=== PATIENT | female | born 1990 | race Two or more races ===

== ENCOUNTER 2024-11-18 10:36 | Emergency (ER) | payer OTHER, SELFPAY ==
[2024-11-18 11:00] VITALS: BP 131/88; PULSE 80; RESP 18; TEMP 37.2; O2SAT 99; BMI 33.1
--- NOTE | 2024-11-18 12:30 | EDNOTE_ITS ---
ED OB Contraction Preg RMI/HPI General Stated complaint: VAGINAL CRAMPING / BLEEDING X AM; 7-8WKS PREG Time Seen by Provider: 11/18/24 11:59 Arrival date/time: 11/18/24 10:36 RME / HPI RME / HPI Narrative: 34-year-old female G4, P1 presents to the emergency department with complaint of vaginal bleeding that started this morning. Patient states she believes she is about 7 to 8 weeks . She denies trauma. She denies possibility of an STI. Patient denies fever or chills. Related Data Previous Rx's ?Medication ?Instructions ?Recorded cephalexin 500 mg capsule (Keflex) 500 mg PO BID #20 caps 03/03/20 naproxen 500 mg tablet 500 mg PO BID #60 tabs 11/22/21 phenazopyridine 200 mg tablet 200 mg PO TID PRN pain 6 doses #6 05/18/22 (Pyridium) tabs Allergies Allergy/AdvReac Type Severity Reaction Status Date / Time No Known Allergies Allergy Verified 11/18/24 10:38 Review of Systems Review of Systems Systems Reviewed: All systems reviewed, normal except as documented Constitutional Constitutional: Reports system reviewed and no additional complaints, except as documented Cardiovascular Cardiovascular: Reports system reviewed and no additional complaints, except as documented Respiratory Respiratory: Reports system reviewed and no additional complaints, except as documented Gastrointestinal Gastrointestinal: Reports system reviewed and no additional complaints, except as documented Genitourinary Genitourinary: Reports system reviewed and no additional complaints, except as documented Musculoskeletal Musculoskeletal: Reports system reviewed and no additional complaints, except as documented ED Exam General General appearance: Present alert and in no apparent distress Head Head exam: Present atraumatic Eye Eye exam: Present normal appearance ENT ENT exam: Present normal exam and normal oropharynx Respiratory Respiratory exam: Present normal lung sounds bilaterally Cardiovascular Cardiovascular exam: Present regular rate Neurological Exam Neurological exam: Present alert and oriented X3 Psychiatric Psychiatric exam: Present normal affect Course Quality Measures none Orders Category Date Time Status US OB <= 14 weeks fetus Stat Exams 11/18/24 12:31 Completed ABO/RH Type Stat Lab 11/18/24 13:11 Completed Beta HCG,Quantitative Stat Lab 11/18/24 13:11 Completed Urinalysis Stat Lab 11/18/24 13:02 Completed Vital Signs Vital signs: Vital Signs Temperature 98.9 F 11/18/24 11:00 Pulse Rate 80 11/18/24 11:00 Respiratory Rate 18 11/18/24 11:00 Blood Pressure 131/88 H 11/18/24 11:00 Pulse Oximetry (%) 99 11/18/24 11:00 Oxygen Delivery Method Room Air 11/18/24 11:00 Vaginal Bleeding Patient data External records reviewed:: None Clinical information provided by:: patient Social determinants that could affect healthcare access:: none Patient has the following chronic illnesses:: na How is presenting disease/condition affected by chronic disease/condition?: no chronic disease Evaluation data The following diagnostics were reviewed and interpreted by me:: lab results and radiology exam(s) Lab and/or radiology exams considered but not ordered:: Labs and radiology exams were considered and ordered Interpretation Summary: Lab indicates demise based on hCG level Ultrasound confirms demise Medications / Prescriptions Medications or Prescriptions considered but not ordered:: na Medication administrations:: na Consultations Consultation(s) initiated? (list below): No Diagnosis Vaginal Bleeding Differential Diagnosis: missed , threatened , dysfunctional uterine bleeding, menometrorrhagia, incomplete and vaginal bleeding Most likely diagnosis given after review of the tests above:: missed Admission Indicated Admission indicated?: not indicated Admission Request Was there a request for admission?: No Disposition Plan Disposition Plan: Discharge Discharge Attestation Discharge Attestation: The patient and all family members were given an opportunity to ask questions and understood the discharge instructions. Discharge instructions specifically effects, indications for sooner follow up or return to the emergency department, and the expected course of current diagnosis. Patient condition: Stable Discharge Plan Plan Patient Disposition: HOME (Self Care) Patient condition on transfer: Stable Prescriptions/Referrals Prescriptions/Med Rec: No Action cephalexin [Keflex] 500 mg capsule 500 mg PO BID Qty: 20 0RF phenazopyridine [Pyridium] 200 mg tablet 200 mg PO TID PRN (Reason: pain) Qty: 6 0RF naproxen 500 mg tablet 500 mg PO BID Qty: 60 0RF Referrals: Wellington Peng MD [Primary Care Provider] - In 1 week Problem List Clinical Impression: Complete miscarriage Patient/Caregiver Discharge Instructions Education Materials: Loss Edison, ED MISCARRIAGE Completed Print Language: Greenlandic Stand Alone Forms: Mere Award Info., Patient Portal Info Letter
--- NOTE | 2024-11-18 12:31 | XR_ITS ---
Examination: Complete OB ultrasound, less than 14 weeks, transabdominal Date and time of exam: November 18, 2023 1333 hrs. Indications: Onset vaginal bleeding beginning this morning Technique: Obstetrical ultrasound images less than 14 weeks performed via transabdominal imaging Findings: Uterus 8.1 x 3.4 x 5.0 cm Endometrial stripe 0.4 cm No uterine mass or intrauterine gestation Right ovary 2.6 x 1.8 x 2.0 cm arterial flow Left ovary 3.0 x 2.2 x 2.5 cm arterial flow Impression: No uterine mass or intrauterine gestation
[2024-11-18 13:29] LABS: Collection Type, Urine Clean Catch; Squamous Epithelial Cell,Urine 0 /hpf (0-5); WBC,Urine 0 /hpf (0-5)
[2024-11-18 13:53] LABS: Beta HCG,Quantitative < 1 mIU/mL (<5.0)
[2024-11-18 14:09] LABS: Bilirubin,Urine Negative (Negative); Blood,Urine 1+ (Negative); Clarity,Urine Clear (Clear/Hazy); Color,Urine Lt-Yellow (Lt Yel-Yel); Glucose, Urine Negative (Negative); Ketones,Urine Negative (Negative); Leukocyte Esterase,Urine Negative (Negative); Nitrite,Urine Negative (Negative); Protein,Urine Negative (Neg - Trace); RBC,Urine 2 /hpf (0-3); Specific Gravity,Urine 1.008 (1.001-1.035); Urobilinogen,Urine Negative mg/dL (0.0-1.0)
== END 2024-11-18 17:05 | disposition home or self-care (01) ==
PROVIDERS: Physician Assistant; Emergency Provider Emergency Medicine; PCP Family Medicine
DX: O03.9 Complete or unspecified spontaneous abortion without complication (principal)
CPT/HCPCS: 36415; 76801; 81001; 84702; 86900; 86901; 99284

== ENCOUNTER 2025-08-09 14:22 | Observation (INO) | payer OTHER, SELFPAY ==
[2025-08-09 14:42] VITALS: BP 118/65; PULSE 88
[2025-08-09 15:02] VITALS: BP 118/65; PULSE 88; RESP 18; RESP 97; TEMP 36.7; BMI 41.4
[2025-08-09 15:36] LABS: Collection Type, Urine Clean Catch
[2025-08-09 15:45] LABS: Bacteria,Urine Rare; Bilirubin,Urine Negative (Negative); Blood,Urine Negative (Negative); Clarity,Urine Clear (Clear/Hazy); Color,Urine Colorless (Lt Yel-Yel); Glucose, Urine Negative (Negative); Ketones,Urine Negative (Negative); Leukocyte Esterase,Urine Positive (Negative); Nitrite,Urine Negative (Negative); PH,Urine 7.0 (5.0-7.0); Protein,Urine Negative (Neg - Trace); RBC,Urine 2 /hpf (0-3); Specific Gravity,Urine 1.010 (1.001-1.035); Squamous Epithelial Cell,Urine 2 /hpf (0-5); Urobilinogen,Urine Negative mg/dL (0.0-1.0); WBC,Urine < 1 /hpf (0-5)
[2025-08-09 16:22] LABS: FFN Specimen Descripton Clr Colrless Aqueous; Fetal Fibronectin Negative (Negative)
== END 2025-08-09 18:00 | disposition home or self-care (01) ==
PROVIDERS: Admitting Provider Specialist; Visit Provider Specialist
DX: O26.893 Other specified pregnancy related conditions, third trimester (principal); Z3A.28 28 weeks gestation of pregnancy; R10.30 Lower abdominal pain, unspecified
CPT/HCPCS: 59025; 59899; 81001; 82731

== ENCOUNTER 2025-10-19 09:52 | Inpatient (IN) | payer OTHER, MEDICAID, SELFPAY ==
--- NOTE | 2025-10-13 09:48 | ESHP_ITS ---
RE: OSWALDO ANDERSON : 1990 DATE OF ADMISSION: 10/19/2025 HISTORY OF PRESENT ILLNESS: This is a 35-year-old 5, para 1-0-3-1, with due date of 10/26 with intrauterine at 39 weeks and 0 days on 10/19, who presents for repeat delivery. Patient's care was complicated by gestational diabetes mellitus class A2, well controlled. She reports occasional contractions. She denies any leaking or bleeding. She reports normal movement. ALLERGIES: NO KNOWN DRUG ALLERGIES. MEDICATIONS: 1. multivitamin 1 p.o. daily. 2. Humulin NPH 10 units subQ at bedtime. 3. Aspirin 81 mg 1 p.o. daily. PAST MEDICAL HISTORY: Recurrent loss, autoimmune disease, rubella nonimmune, fatty infiltration of the liver, varicose veins, gestational diabetes mellitus class A2, constipation. FAMILY HISTORY: Diabetes. OBSTETRIC HISTORY: In 2016, 40 weeks, delivery. In 2018, spontaneous AB, 6 weeks gestation, no D and C. In 2020, 6 weeks, spontaneous AB, no D and C. In 10/2024, 6 weeks, spontaneous AB, no D and C. PAST SURGICAL HISTORY: Laparoscopic cholecystectomy 04/2017 and delivery 04/2017. REVIEW OF SYSTEMS: She denies any chest pain, palpitations, cough, fever, flank pain, shortness of breath, or lower extremity pain. PHYSICAL EXAMINATION: VITAL SIGNS: Blood pressure 116/71, heart rate 88, respirations 18, temperature is 98.6, weight 238 pounds. HEENT: Oropharynx and sclerae are clear. LUNGS: Clear to auscultation bilaterally. HEART: Regular rate and rhythm. ABDOMEN: Gravid, term size. Old Pfannenstiel scar noted. EXTREMITIES: Nontender. SKIN: No gross rashes or lesions. NEUROLOGIC: No focal deficit. ASSESSMENT: Intrauterine at 39 weeks, on 10/19. Previous delivery, elective repeat delivery. PLAN: Repeat delivery. Informed consent was obtained. The patient made aware of the risks, complications, alternatives, and benefits of the proposed procedure and she agrees. DT: 09:34:14 TT: 09:47:00 Ref: [id number] - TID: [id number] [facility]
[2025-10-18 10:14] LABS: Basophils # (Auto) 0.0 Thou/mm3 (0.0-0.2); Basophils % (Auto) 0 % (0-2.5); Eosinophils # (Auto) 0.0 Thou/mm3 (0.0-0.5); Eosinophils % (Auto) 1 % (0-10); Hematocrit 38.3 % (36.0-46.0); Hemoglobin 12.4 g/dL (12.0-16.0); Immature Granulocytes Auto 0.04 Thou/mm3 (0.00-0.00); Lymphocytes # (Auto) 1.8 Thou/mm3 (1.0-4.8); Lymphocytes % (Auto) 21 % (10-50); Mean Corpuscular HGB Conc 32.4 g/dl (31.0-37.0); Mean Corpuscular Hemoglobin 29.2 pg (25.0-35.0); Mean Corpuscular Volume 90 fL (80-100); Monocytes # (Auto) 0.8 Thou/mm3 (0.0-0.8); Monocytes % (Auto) 9 % (0-12); Neutrophils # (Auto) 5.9 Thou/mm3 (1.8-7.7); Neutrophils % (Auto) 69 % (37-80); Nucleated Red Blood Cell # 0.00 Thou/mm3 (0.00-0.00); Nucleated Red Blood Cell % 0 /100 WBC (0); Platelet Count 135 Thou/mm3 (140-440); RDW Standard Deviation 47.1 fL (36.4-46.3); Red Blood Count 4.25 Miln/mm3 (4.00-5.20); White Blood Count 8.5 Thou/mm3 (3.6-11.0)
[2025-10-18 10:27] LABS: INR 0.9 (0.9-1.3); Partial Thromboplastin Time 26.2 Seconds (22.0-36.0); Prothrombin Time 9.7 Seconds (9.0-12.2)
[2025-10-18 10:31] LABS: Alanine Aminotransferase 8 U/L (10-49); Albumin, Serum 3.9 gm/dL (3.5-5.0); Albumin/Globulin Ratio 1.4 (1.2-2.2); Alkaline Phosphatase 156 U/L (46-116); Anion Gap 10 (7-16); Aspartate Amino Transferase < 8 U/L (0-34); BUN/Creatinine Ratio 12 Ratio (12-20); Bilirubin,Total 0.3 mg/dL (0.3-1.2); Blood Urea Nitrogen 6 mg/dL (9-23); Calcium 9.3 mg/dL (8.3-10.6); Calcium (Corrected) 9.4 mg/dL (8.5-10.1); Carbon Dioxide 25.0 mMol/L (20.0-31.0); Chloride 106 mMol/L (98-107); Creatinine (Component) 0.5 mg/dL (0.6-1.3); Globulin 2.7 gm/dL (2.3-3.5); Glucose 94 mg/dL (74-106); Osmolality,Calculated 278 (275-295); Potassium 4.3 mMol/L (3.4-5.1); Sodium 141 mMol/L (136-145); Total Protein 6.6 gm/dL (5.7-8.2); eGFR > 60 See Note
[2025-10-18 11:20] LABS: Syphilis Nonreactive (Nonreactive)
[2025-10-19] VITALS (17 sets, daily range): BP systolic 0–140; BP diastolic 0–85; PULSE 70–92; RESP 12–25; TEMP 36.6–36.9; O2SAT 95–99; BMI 42.6
[2025-10-19 10:34] LABS: Basophils # (Auto) 0.0 Thou/mm3 (0.0-0.2); Basophils % (Auto) 0 % (0-2.5); Eosinophils # (Auto) 0.0 Thou/mm3 (0.0-0.5); Eosinophils % (Auto) 0 % (0-10); Hematocrit 38.7 % (36.0-46.0); Hemoglobin 12.9 g/dL (12.0-16.0); Immature Granulocytes Auto 0.05 Thou/mm3 (0.00-0.00); Lymphocytes # (Auto) 2.2 Thou/mm3 (1.0-4.8); Lymphocytes % (Auto) 23 % (10-50); Mean Corpuscular HGB Conc 33.3 g/dl (31.0-37.0); Mean Corpuscular Hemoglobin 29.6 pg (25.0-35.0); Mean Corpuscular Volume 89 fL (80-100); Monocytes # (Auto) 0.9 Thou/mm3 (0.0-0.8); Monocytes % (Auto) 9 % (0-12); Neutrophils # (Auto) 6.4 Thou/mm3 (1.8-7.7); Neutrophils % (Auto) 67 % (37-80); Nucleated Red Blood Cell # 0.00 Thou/mm3 (0.00-0.00); Nucleated Red Blood Cell % 0 /100 WBC (0); Platelet Count 136 Thou/mm3 (140-440); RDW Standard Deviation 46.2 fL (36.4-46.3); Red Blood Count 4.36 Miln/mm3 (4.00-5.20); White Blood Count 9.5 Thou/mm3 (3.6-11.0)
[2025-10-19] MEDS: RINGERS LACTATED 1000 ML 1,000 ML 100 ML IV ×2 (10:44→11:14)
[2025-10-19 11:14] LABS: Syphilis Nonreactive (Nonreactive)
[2025-10-19] MEDS: ceFAZolin/D5W 2 GM IV 2 GM/100 ML BAG IV (12:18)
[2025-10-19] MEDS: FAMOTIDINE INJ 10 MG/ML VIAL 2 ML 20 MG IV (12:18)
--- NOTE | 2025-10-19 12:27 | ESDS_ITS ---
DS: Providers Provider Date of admission: 10/19/25 09:52 Primary care physician: Wellington Peng MD Admitting Provider: Carlos Mar MD Attending Provider on Admission: Carols Mar MD Attending Provider on DC: Carlos Mar MD Discharging Provider: Carlos Mar MD DS: Diagnosis Problem List Completed Was Problem List Reviewed/Reconciled?: Yes Summary/Hosp Course Peripartum Data Procedures: Procedures Operation Date: 10/19/25 12:45 <No data on this case meets the specified criteria> Time Spent with Patient Time attestation: Total time spent providing and/or coordinating discharge services: Exam Vital Signs Temp Pulse Resp BP 98.0 F 91 16 0/0 L 10/19/25 10:00 10/19/25 10:12 10/19/25 10:00 10/19/25 10:13 Discharge Plan Plan Patient Disposition: HOME (Self Care) Patient condition on transfer: Stable Prescriptions/Referrals Prescriptions/Med Rec: New ibuprofen 600 mg tablet 600 mg PO Q6H PRN (Reason: pain) Qty: 30 0RF Continued Vitamin 27 mg iron- 800 mcg tablet 1 tab PO QDAY Discontinued aspirin 81 mg tablet 81 mg PO QDAY Referrals: Wellington Peng MD [Primary Care Provider, Family Practice] Patient/Caregiver Discharge Instructions Discharge Activity: activity as tolerated Other Discharge Activity Instructions:: Follow up office 1 week. Education Materials: Depression, Breast Care After , : Caring for Yourself, C Section Dc, Hemorrhage Print Language: Bulgarian Stand Alone Forms: Mere Award Info., Patient Portal Info Letter Discharge Order Discharge Orders: Discharge (Routine); Ordered 10/21/25 Ordered By: Carlos Mar Planned Discharge Date 10/21/25
--- NOTE | 2025-10-19 12:27 | PD.ADDHP ---
Addendum History & Physical Addendum Date of report being addended: 10/19/25 Narrative: Patient reexamined. No change in H and P .
--- NOTE | 2025-10-19 12:27 | PD.GYNPROC ---
Operative Note - AUTOMOTIVE PARTS INTERPRETER Procedure Date of procedure: 10/19/25 Procedure Performed: Repeat low-transverse section via Pfannenstiel skin incision Indication: Intrauterine at 39 weeks and 0 days Gestational diabetes mellitus class A2 Previous delivery elects repeat delivery Pre-Op diagnosis: Intrauterine at 39 weeks and 0 days Gestational diabetes mellitus class A2 Previous delivery elects repeat delivery Post-Op diagnosis: Intrauterine at 39 weeks and 0 days Gestational diabetes mellitus class A2 Previous delivery elects repeat delivery Anesthesia type: Spinal Procedure description: After proper informed consent was obtained and the patient was made aware of the risks, complications, alternatives and benefits of the proposed procedure she was taken to the operating room where she underwent induction of spinal anesthesia. She was prepped and draped in the usual sterile fashion. A timeout was performed.? A Pfannenstiel skin incision was made with the scalpel and carried through to the underlying layer of fascia with the Bovie. The fascia was nicked in the midline incision and the incision was extended bilaterally with the Bovie. The inferior aspect of the fascial incision was grasped with Danny clamps elevated and the underlying rectus muscle dissected off with the Bovie. The superior aspect the fascial incision was grasped with Danny clamps elevated and the underlying rectus muscle dissected off with the Bovie. The rectus muscles were in the midline. The peritoneum was grasped between 2 Sheridan clamps and entered sharply with the Metzenbaum scissors. The peritoneum was extended superiorly and inferiorly with good visualization of the bladder. The vesicouterine peritoneum was incised transversely and the bladder flap created digitally. A Enderlin blade was inserted. A low transverse incision was made in the uterus with a scapel and the incision was extended digitally. The 's head delivered and the mouth and nose were suctioned with the bulb suction. The shoulder and body delivered atraumatically. The cord was clamped after 30 second delayed cord clamping and the cord was cut.? The was handed off to the waiting Pediatric staff, cord blood was collected for lab testing. The placenta was removed complete and intact. The uterus was exteriorized and cleared of all clots and debris. The uterine incision was closed with #1-0 chromic catgut suture in a running interlocking fashion. A second layer of the same suture was used to imbricate the first layer and obtain excellent hemostasis. The vesicouterine peritoneum was closed with 2-0 chromic catgut suture in a running fashion. The firm uterus was returned to the abdomen. The gutters were cleared of all clots and debris. The peritoneum was closed with 0 chromic catgut suture in running fashion. The rectus muscle was closed with 0 chromic catgut suture. The fascia was closed with 0 Vicryl beginning at each angle and ending in the center in a running fashion. The subcutaneous tissue was irrigated with warmed normal saline solution and found to be hemostatic. The subcutaneous tissue was closed with 2-0 chromic catgut suture in a running fashion. The skin was closed with 4-0 Monocryl. A Dermabond Prineo dressing was applied and a sterile pressure dressing was applied.? She tolerated the procedure well. Counts were correct. I discussed with the patient the nature of her condition, intraoperative findings and expectation for recovery all? questions answered. Specimen: none Estimated blood loss (ml): 1,000 Findings: Live male Apgars 8 and 8 Amniotic fluid clear Cephalic Weight 9lbs 5 oz Placenta removed completely intact Ovaries and tubes grossly within normal limits Uterus initially atonic but responded to uterotonics: Pitcocin, Methegerine, Cytotec and TXA Complications: other (Uterine atony) Surgical staff Sathish Mar, Surgeon Operation Date: 10/19/25 12:45 <No data on this case meets the specified criteria> Diagnosis Discharge Diagnosis (1) delivery delivered: Status: Acute (2) Gestational diabetes mellitus, class A2: Status: Acute (3) Uterine atony, , current hospitalization: Status: Acute Problem List Completed Was Problem List Reviewed/Reconciled?: Yes
--- NOTE | 2025-10-19 13:44 | OBDSUM_ITS ---
Data (Deshpande) Data Hx Section: Yes : 2 Term: 1 : 0 Livin Abortions: Spontaneous & Theraputic: 3 Delivery Data (Deshpande) Labor Data Induction/Augmentation Agent: None ROM date: 10/19/25 ROM time: 12:55 Amniotic membrane rupture type: Artificial Amniotic fluid description: Clear Delivery Data delivery date: 10/19/25 delivery time: 12:56 Placenta delivery date: 10/19/25 Placenta delivery time: 12:58 Delivered by: Delivery nurse: mamie beltran [place] nurse: kika Brass And [employer] Instrument Repairer at delivery: No Support person(s) at delivery: fob Delivery Method Delivery method: Low Transverse Presentation: Vertex position: OA Anesthesia Type Anesthesia Type: Spinal Anesthesia type: Spinal Placenta Placenta delivery description: Manual Removal Cord blood sent to lab: Yes cord blood collection: Cord Blood Type Episiotomy Episiotomy description: None EBL Estimated blood loss (ml): 1,000 Umbilical Cord cord description: 3 Vessels Complications Complications: Uterine atony Data (Deshpande) Data order: 1 's gender: Male Identification band number: [id number] weight (gms): 9 lb 4.503 oz Weight (pounds): 9 lbs and 4.5 ozs [place] length: 22 in 1 minute: 8 5 minutes: 8
[2025-10-19] MEDS: OXYTOCIN in NS 20 units 20 UNIT/1,000 ML BAG 125 UNIT IV ×2 (14:24→22:31)
[2025-10-19] MEDS: KETOROLAC INJ 30 MG/ML VIAL IVP (14:58)
[2025-10-19 21:36] LABS: Basophils # (Auto) 0.0 Thou/mm3 (0.0-0.2); Basophils % (Auto) 0 % (0-2.5); Eosinophils # (Auto) 0.0 Thou/mm3 (0.0-0.5); Eosinophils % (Auto) 0 % (0-10); Hematocrit 36.2 % (36.0-46.0); Hemoglobin 12.0 g/dL (12.0-16.0); Immature Granulocytes Auto 0.09 Thou/mm3 (0.00-0.00); Lymphocytes # (Auto) 1.4 Thou/mm3 (1.0-4.8); Lymphocytes % (Auto) 8 % (10-50); Mean Corpuscular HGB Conc 33.1 g/dl (31.0-37.0); Mean Corpuscular Hemoglobin 29.8 pg (25.0-35.0); Mean Corpuscular Volume 90 fL (80-100); Monocytes # (Auto) 0.4 Thou/mm3 (0.0-0.8); Monocytes % (Auto) 2 % (0-12); Neutrophils # (Auto) 16.5 Thou/mm3 (1.8-7.7); Neutrophils % (Auto) 90 % (37-80); Nucleated Red Blood Cell # 0.00 Thou/mm3 (0.00-0.00); Nucleated Red Blood Cell % 0 /100 WBC (0); Platelet Count 126 Thou/mm3 (140-440); RDW Standard Deviation 46.3 fL (36.4-46.3); Red Blood Count 4.03 Miln/mm3 (4.00-5.20); White Blood Count 18.4 Thou/mm3 (3.6-11.0)
[2025-10-20] MEDS: KETOROLAC INJ 30 MG/ML VIAL IVP (00:43)
[2025-10-20 03:49] VITALS: BP 115/72; PULSE 70; RESP 16; TEMP 36.6; O2SAT 97
--- NOTE | 2025-10-20 05:59 | ESPR_ITS ---
RE: OSWALDO ANDERSON : 1990 DATE OF SERVICE: 10/20/2025 SUBJECTIVE: Post-op day number 1. Patient denies any problem or complaints. She is voiding. She is ambulating. She is tolerating a diet. She is passing flatus. She denies any excessive vaginal bleeding. She denies any dizziness or lightheadedness. She denies any chest pain, palpitations, shortness of breath or lower extremity pain. OBJECTIVE: Blood pressure 115/72, heart rate 70, respirations 16, temperature is 97.8, pulse ox is 97% on room air. Lungs clear to auscultation bilaterally. Heart regular rate and rhythm. Abdomen fundus is firm. Dressing dry and intact. Extremities nontender. Hemoglobin pre-delivery is 12.9, post-delivery is 12.0. ASSESSMENT: Post-op day number 1 status post delivery. PLAN: Remove dressing. Discontinue IV. support. Encourage ambulation. Possible discharge home tomorrow. DT: 05:23:18 TT: 05:58:00 Ref: [id number] - TID: [id number]
[2025-10-20 08:00] VITALS: BP 113/77; PULSE 82; RESP 16; TEMP 36.6; O2SAT 97
[2025-10-20] MEDS: IBUPROFEN TAB 400 MG TABLET 800 MG PO ×2 (08:46→20:30)
[2025-10-20] MEDS: Milk Of Magnesia Susp 30 ML UDC PO (08:46)
[2025-10-20] MEDS: ENOXAPARIN SOD INJ 40 MG/0.4 ML SYRINGE SC (08:46)
[2025-10-20] MEDS: DOCUSATE SOD 100 MG CAPSULE PO (08:46)
[2025-10-20] MEDS: SIMETHICONE 80 MG CHEW PO ×2 (08:46→20:29)
--- NOTE | 2025-10-20 11:39 | PC.SS ---
TENSILE TESTER conducted bedside contact with the patient to address nursing referral indicating patient possessed elevated PPD score.? TENSILE TESTER introduced self and role.? Patient confirmed being informed of elevated score by bedside nurse.? Patient denies possessing any current symptoms of depression.? Patient reports no history of mental health.? Patient stated that assessment given earlier in the morning.? , Carlito; is the patient?s second child.? delivered via .? Patient plans on the .? OB services provided by Dr. Mar. ?Patient reports compliance with OB appointments.? FOB, Juan Lyons; will be involved in the rearing of the .? Patient is receiving WIC and SNAP.? Patient is not aligned with TANF.? Patient denies history of alcohol/drug use.? Patient denies episodes of domestic violence.? Patient has access to appropriate supplies and equipment.? FOB will provide transportation upon discharge.? Patient describes possessing support system consisting of spouse and extended family.? TENSILE TESTER provided community resources to include [employer] and [employer].? No further intervention required at this time, social security specialist will be available to address any further concerns.? TENSILE TESTER updated bedside nurse.?
[2025-10-20 11:50] VITALS: BP 114/73; PULSE 79; RESP 18; TEMP 36.7; O2SAT 97
[2025-10-20] MEDS: HYDROcodone/APAP 5/325 TABLET 1 TAB PO (17:32)
[2025-10-20 20:09] VITALS: BP 122/69; PULSE 83; RESP 14; TEMP 36.5; O2SAT 98
[2025-10-21 03:16] VITALS: BP 110/65; PULSE 82; RESP 12; TEMP 36.3; O2SAT 97
--- NOTE | 2025-10-21 06:35 | ESPR_ITS ---
RE: OSWALDO ANDERSON : 1990 DATE OF SERVICE: 10/21/2025 SUBJECTIVE: Postop day #2, patient denies any problem or complaints. She is voiding. She is ambulating. She is tolerating regular diet. She is passing flatus. She denies any excessive vaginal bleeding. She denies any dizziness or lightheadedness. She denies any chest pain, palpitations, shortness of breath, or lower extremity pain. OBJECTIVE: VITAL SIGNS: Blood pressure 122/69, heart rate 83, respirations 14, temperature is 97.7, pulse ox is 98% on room air. LUNGS: Clear to auscultation bilaterally. HEART: Regular rate and rhythm. ABDOMEN: Nondistended. Fundus is firm. Incision clean and intact. EXTREMITIES: Nontender. ASSESSMENT: Postop day #2 status post delivery. PLAN: Discharge home. Discharge instructions given. Follow up in the office in 1 week. DT: 04:47:12 TT: 06:34:00 Ref: [id number] - TID: [id number]
[2025-10-21] MEDS: DOCUSATE SOD 100 MG CAPSULE PO (08:07)
[2025-10-21] MEDS: ENOXAPARIN SOD INJ 40 MG/0.4 ML SYRINGE SC (08:07)
[2025-10-21 08:54] VITALS: BP 112/78; PULSE 69; RESP 18; TEMP 36.6; O2SAT 98
== END 2025-10-21 12:15 | disposition home or self-care (01) | DRG 788 ==
LOC: S4SX 09:54 → S4NX 12:29
PROVIDERS: Admitting Provider Specialist; PCP Family Medicine; Visit Provider Specialist
PROC: 10D00Z1 Extraction of Products of Conception, Low, Open Approach (ICD-10-PCS; CPT 59514; principal; 2025-10-19 12:30)
DX: O34.211 Maternal care for low transverse scar from previous cesarean delivery (principal); O24.424 Gestational diabetes mellitus in childbirth, insulin controlled; O62.2 Other uterine inertia; Z3A.39 39 weeks gestation of pregnancy; Z37.0 Single live birth; Z90.49 Acquired absence of other specified parts of digestive tract
CPT/HCPCS: 36415; 80053; 85025; 85610; 85730; 86780; 86850; 86900; 86901; 86923; A4217; A4314; A4649; J0689; J1100; J1650; J1885; J2210; J2250; J2274; J2405; J2590; J3010; J3490; J7120; S0191; A9270; J2270